=== PATIENT | female | born 1965 | race African-American/Black ===

== ENCOUNTER 2023-10-06 04:12 | Emergency (ER) | payer OTHER ==
[~2023-10-06] VITALS: Ht 162.6 cm; Wt 110.0 kg
[~2023-10-06 04:12] MED LIST: ASPI81TA80 PO; ATEN-72 PO; BUSP15 PO; ENAL-89 PO; INDO50CA98 PO; SIMV-259 PO; TRIA1TAB3 PO
[2023-10-06 04:30] VITALS: BP 214/122; PULSE 75; RESP 17; TEMP 97.7
[2023-10-06] MEDS: CloNIDine HCL 0.1 MG TABLET PO ONE (05:15)
[2023-10-06] MEDS: CHLORTHALIDONE 25 MG TABLET PO ONE (05:15)
[2023-10-06] MEDS: AmLODIPine BESYLATE 10 MG TABLET PO ONE (05:17)
[2023-10-06 05:55] LABS: ANION GAP 9 mmol/L (8-16); CALCIUM, TOTAL 9.9 mg/dL (8.8-10.5); CARBON DIOXIDE 29 mmol/L (22-29); CHLORIDE 101 mmol/L (98-107); CREATININE 1.05 mg/dL (0.60-1.30); GLOMERULAR FILTR. RATE CALC > 60 mL/min (>60); GLUCOSE,RANDOM 71 mg/dL (70-110); SODIUM SERUM 139 mmol/L (136-145); UREA NITROGEN, BLOOD 26 mg/dL (7-18)
[2023-10-06 05:57] LABS: BASOPHILS % (AUTO) 0.5 % (0.0-2.0); HEMOGLOBIN 12.7 g/dL (12.0-16.0); LYMPHOCYTES # (AUTO) 2.2 K/uL (1.0-4.8); LYMPHOCYTES % (AUTO) 49.5 % (22.0-44.0); MEAN CORPUSCULAR HGB CONC 34.2 G/dL (31.0-37.0); MEAN CORPUSCULAR VOLUME 97 fL (80-100); MONOCYTES # (AUTO) 0.3 K/uL (0.1-1.0); MONOCYTES % (AUTO) 6.9 % (2.0-9.0); NEUTROPHILS # (AUTO) 1.9 K/uL (1.8-7.7); NEUTROPHILS % (AUTO) 41.1 % (40.0-70.0); PLATELET COUNT (AUTO) 169 K/uL (150-450); RED BLOOD CELL COUNT(AUTO) 3.83 MIL/uL (4.00-5.20); RED CELL DISTRIBUTION WIDTH 12.6 % (11.5-14.5); WHITE BLOOD COUNT (AUTO) 4.5 K/uL (4.5-11.0)
[2023-10-06] MEDS ORDERED: METO1TAB13 PO (05:59)
[2023-10-06] MEDS ORDERED: AMLO-258 PO (05:59)
[2023-10-06 06:00] LABS: POTASSIUM 2.7 mmol/L (3.5-5.1)
[2023-10-06] MEDS ORDERED: POTA8TAB72 PO (06:02)
[2023-10-06 06:04] LABS: TROPONIN I-HIGH SENSITIVITY 18 ng/L (<51)
[2023-10-06] MEDS ORDERED: LISI-894 PO (06:05)
[2023-10-06] MEDS: POTASSIUM CHLORIDE 10% 40 MEQ/30 ML LIQUID UDCUP PO ONE (06:14)
[2023-10-06 06:26] LABS: ALCOHOL, URINE DRUG SCREEN NEGATIVE (NEGATIVE); AMPHET/METH SCREEN,URINE POSITIVE (NEGATIVE); BARBITURATE SCREEN, URINE NEGATIVE (NEGATIVE); BENZODIAZEPINES SCREEN,URINE NEGATIVE (NEGATIVE); CANNABINOID SCREEN,URINE POSITIVE (NEGATIVE); COCAINE SCREEN,URINE POSITIVE (NEGATIVE); METHADONE SCREEN, URINE NEGATIVE (NEGATIVE); OPIATE SCREEN,URINE NEGATIVE (NEGATIVE); PHENCYCLIDINE SCREEN,URINE NEGATIVE (NEGATIVE)
[2023-10-06] MEDS: POTASSIUM CHLORIDE 20 MEQ ER TABLET PO ONE (06:28)
== END 2023-10-06 07:17 | disposition home or self-care (01) ==
LOC: EMS 04:13
DX: I10 Essential (primary) hypertension (principal); E87.6 Hypokalemia; F15.10 Other stimulant abuse, uncomplicated; F14.10 Cocaine abuse, uncomplicated; E78.00 Pure hypercholesterolemia, unspecified; Z90.49 Acquired absence of other specified parts of digestive tract; Z98.51 Tubal ligation status; Z98.890 Other specified postprocedural states
CPT/HCPCS: 80048; 80307; 84484; 85025; 93005; 99284